=== PATIENT | female | born 1955 | race Caucasian/White ===

== ENCOUNTER 2017-05-10 02:38 | Emergency (ER) | payer MEDICARE ==
[2017-05-10 03:13] LABS: #Eosinphils 0.4 thou/uL (0.0-0.7); #Lymphocytes 3.3 thou/uL (1.20-3.40); #Monocytes 0.5 thou/uL (0.11-0.59); #Neutrophils 7.3 thou/uL (1.40-6.50); %Eosinophils 3.6 % (0.0-10.0); %Lymphocytes 28.2 % (21.0-51.0); %Monocytes 4.5 % (0.0-10.0); %Neutrophils 62.7 % (42.0-75.0); Mean Corpuscular HGB CONC 32.4 g/dL (32.0-36.0); Mean Corpuscular Volume 92.6 fL (81.0-99.0); Mean Platelet Volume 9.7 fL (7.4-10.4); Platelet Count 240 thou/uL (130-400); RBC Distribution Width 13.1 % (11.5-14.5); Red Blood Cell (RBC) Count 4.66 mill/uL (4.20-5.40); White Blood Cell (WBC) Count 11.7 thou/uL (4.8-10.8)
[2017-05-10 03:14] LABS: #Basophils 0.1 thou/uL (0.0-0.2)
[2017-05-10 03:17] LABS: Albumin 4.1 g/dL (3.5-5.0); Anion Gap 18 mmol/L (10-20); BUN (Urea Nitrogen) 21 mg/dL (9.8-20.1); Bilirubin, Total 0.3 mg/dL (0.2-1.2); Calc. Creatinine Clearance 0 mL/min (70-130); Calcium 10.4 mg/dL (7.8-10.44); Carbon Dioxide 23 mmol/L (22-29); Chloride 101 mmol/L (98-107); Estimated GFR-MDRD 37; Globulin 3.4 g/dL (2.4-3.5); Glucose 345 mg/dL (70-105); Potassium 4.2 mmol/L (3.5-5.1); Protein, Total 7.5 g/dL (6.0-8.3); Sodium 138 mmol/L (136-145)
[2017-05-10 03:18] LABS: ALT (SGPT) 13 U/L (8-55); AST (SGOT) 12 U/L (5-34); Alkaline Phosphatase 98 U/L (40-150)
[2017-05-10] MEDS ORDERED: Insulin Regular 300 UNITS/3 ML VIAL ONE (04:03)
--- NOTE | 2017-05-10 08:07 | CT ---
PRELIMINARY REPORT/[facility]/EMERGENCY AFTER HOURS PROCEDURE: EXAM: CT Lumbar Spine Without Intravenous Contrast EXAM DATE/TIME: Exam ordered 05/10/2017 3:16 AM CLINICAL HISTORY: 61 years old, female; Signs and symptoms; Numbness TECHNIQUE: Axial computed tomography images of the lumbar spine without intravenous contrast. Coronal and sagittal reformatted images were created and reviewed. COMPARISON: No relevant prior studies available. FINDINGS: Vertebrae: Unremarkable. No acute fracture. Discs/spinal canal/neural foramina: L4-L5 disc bulge. No significant central canal stenosis. Soft tissues: Unremarkable. Vasculature: 2.2 cm AAA. No rupture. Adrenals: Incidental right adrenal adenoma. Kidneys and ureters: Nonobstructive nephrolithiasis right kidney. Appendix: Normal appendix. IMPRESSION: No acute findings. Thank you for allowing us to participate in the care of your patient. Dictated and Authenticated by: Alverto Garcia MD 05/10/2017 4:00 AM Central Time ([place] & [place]) FINAL REPORT CT LUMBAR SPINE NONCONTRAST: DATE: 05/10/17. TIME: Performed on an emergency basis at 0317 hours. HISTORY: Low back pain. Numbness. FINDINGS: Findings agree with the preliminary report from [facility]. No acute osseous abnormalities ar e demonstrated. Degenerative changes of the lumbar spine are apparent. There is atherosclerosis and fusiform ectasia of the lower abdominal aorta. POS: [facility]
--- NOTE | 2017-05-10 08:08 | CT ---
PRELIMINARY REPORT/[facility]/EMERGENCY AFTER HOURS PROCEDURE: EXAM: CT Head Without Intravenous Contrast EXAM DATE/TIME: Exam ordered 05/10/2017 3:13 AM CLINICAL HISTORY: 61 years old, female; Signs and symptoms; Numbness / parasthesia; Left TECHNIQUE: Axial computed tomography images of the head/brain without intravenous contrast. COMPARISON: No relevant prior studies available. FINDINGS: Brain: Mild generalized volume loss of the brain. No hemorrhage. No significant white matter disease. Ventricles: Unremarkable. No ventriculomegaly. Bones/joints: Unremarkable. No acute fracture. Soft tissues: Unremarkable. Sinuses: Unremarkable as visualized. No acute sinusitis. Mastoid air cells: Unremarkable as visualized. No mastoid effusion. IMPRESSION: No acute brain findings. Thank you for allowing us to participate in the care of your patient. Dictated and Authenticated by: Alverto Garcia MD 05/10/2017 3:47 AM Central Time ([place] & [place]) FINAL REPORT CT HEAD NONCONTRAST: DATE: 05/10/17. TIME: Performed on an emergency basis at 0314 hours. HISTORY: Paresthesias. Numbness. FINDINGS: No comparison. Findings agree with the preliminary report from [facility]. No acute intracra nial abnormalities are demonstrated on noncontrast CT head. POS: [facility]
[2017-05-10] MEDS ORDERED: Sodium Chloride 0.9% 1,000 ML BAG ONE (08:26)
== END 2017-05-10 13:02 | disposition short-term general hospital (02) ==
LOC: MADERS 02:38
DX: I73.9 Peripheral vascular disease, unspecified (principal); E11.65 Type 2 diabetes mellitus with hyperglycemia; R27.0 Ataxia, unspecified; E78.5 Hyperlipidemia, unspecified; E66.9 Obesity, unspecified; J44.9 Chronic obstructive pulmonary disease, unspecified; Z79.84 Long term (current) use of oral hypoglycemic drugs; Z79.899 Other long term (current) drug therapy
CPT/HCPCS: 36415; 70450; 72131; 80053; 85025; 96360; J1815; J7050

== ENCOUNTER 2018-05-10 20:49 | Emergency (ER) | payer MEDICARE ==
[2018-05-10 21:27] LABS: Bilirubin Negative (Negative); Blood, Urine Small (Negative); Glucose, Urine (Dipstick) 500 mg/dL (Negative); Leukocyte Negative (Negative); Nitrite Negative (Negative); Protein, Urine (Dipstick) 100 mg/dL (Neg-Trace); Specific Gravity, Urine 1.015 (1.005-1.030); Urobilinogen 0.2 mg/dL (0.2-1.0); pH, Urine 5.5 (5.0-9.0)
[2018-05-10 21:29] LABS: Clarity Hazy (Clear)
[2018-05-10 21:30] LABS: WBC/HPF 0-3 HPF (0-3)
[2018-05-10 21:31] LABS: Bacteria/HPF None Seen HPF (None Seen)
[2018-05-10 21:39] LABS: Amphetamine Not Detected (NotDetected); Barbiturates Screen Not Detected (NotDetected); Benzodiazepine Screen Not Detected (NotDetected); Cocaine Metabolite Screen Not Detected (NotDetected); Medtox Control Line Valid? VALID (VALID); Methadone Not Detected (NotDetected); Methamphetamine Not Detected (NotDetected); Opiate Screen Not Detected (NotDetected); Oxycodone Screen Not Detected (NotDetected); Phencyclidine (PCP) Not Detected (NotDetected); THC/Cannabinoid Screen Not Detected (NotDetected); Tricyclic Screen Not Detected (NotDetected)
--- NOTE | 2018-05-10 21:48 | CT ---
CT BRAIN WITHOUT CONTRAST: INDICATIONS: History of fall while on blood thinners. COMPARISON: 05/10/2017 FINDINGS: There is mild generalized cerebral and cerebellar atrophy. No acute infarct, hemorrhage, or hydrocep halus is present. The septum pellucidum and third ventricle are midline. The skull and extracranial soft tissues are unremarkable appearing. IMPRESSION: No acute intracranial abnormality. Stable chronic findings as above. POS: [facility]
--- NOTE | 2018-05-10 21:49 | RAD ---
RIGHT WRIST THREE VIEWS: INDICATIONS: History of fall with right wrist pain. FINDINGS: There is an obliquely oriented, nondisplaced intraarticular radial styloid process fracture that ente rs the articular surface of the distal radius at the region of the scaphoid fossa. No additional fra cture is evident. There is soft tissue swelling surrounding the right wrist. IMPRESSION: Nondisplaced radial styloid process fracture. POS: [facility]
[2018-05-10] MEDS ORDERED: Sodium Chloride 0.9% 1,000 ML ONE (21:50)
[2018-05-10] MEDS ORDERED: Insulin Regular 300 UNITS/3 ML VIAL ONE (21:50)
--- NOTE | 2018-05-10 21:58 | RAD ---
LUMBAR SPINE THREE VIEWS: INDICATIONS: History of fall with back pain. COMPARISON: Lumbar spine CT evaluation, dated 05/10/2017. FINDINGS: There has been interval development of a mild to moderate wedge compression abnormality at L1. There is multilevel spondylosis of the thoracic spine. There are scattered vascular calcifications. IMPRESSION: Mild to moderate wedge compression abnormality of L1, new from the comparison examination, dated 2017. POS: [facility]
[2018-05-10 22:06] LABS: #Basophils 0.1 thou/uL (0.0-0.2); #Eosinphils 0.1 thou/uL (0.0-0.7); #Lymphocytes 2.1 thou/uL (1.20-3.40); #Monocytes 0.6 thou/uL (0.11-0.59); #Neutrophils 11.2 thou/uL (1.40-6.50); %Basophils 0.7 % (0.0-1.0); %Eosinophils 0.8 % (0.0-10.0); %Lymphocytes 14.9 % (21.0-51.0); %Monocytes 4.3 % (0.0-10.0); %Neutrophils 79.3 % (42.0-75.0); Hemoglobin 12.6 g/dL (12.0-16.0); Mean Corpuscular HGB CONC 32.8 g/dL (32.0-36.0); Mean Corpuscular Hemoglobin 29.2 pg (27.0-31.0); Mean Corpuscular Volume 88.8 fL (78.0-98.0); Mean Platelet Volume 8.5 fL (7.4-10.4); Platelet Count 192 thou/uL (130-400); RBC Distribution Width 13.2 % (11.5-14.5); Red Blood Cell (RBC) Count 4.32 mill/uL (4.20-5.40); White Blood Cell (WBC) Count 14.1 thou/uL (4.8-10.8)
[2018-05-10 22:24] LABS: ALT (SGPT) 14 U/L (8-55); AST (SGOT) 11 U/L (5-34); Acetaminophen Less than 6.0 mcg/mL (10.0-30.0); Albumin 3.8 g/dL (3.4-4.8); Alcohol Less than 10 mg/dL (Less than 10); Alkaline Phosphatase 142 U/L (40-150); Anion Gap 18 mmol/L (10-20); BUN (Urea Nitrogen) 15 mg/dL (9.8-20.1); Bilirubin, Total 0.7 mg/dL (0.2-1.2); Calc. Creatinine Clearance 0 mL/min (70-130); Calcium 9.3 mg/dL (7.8-10.44); Carbon Dioxide 24 mmol/L (23-31); Chloride 99 mmol/L (98-107); Estimated GFR-MDRD 45; Glucose 365 mg/dL (80-115); Protein, Total 6.8 g/dL (6.0-8.3); Salicylate Less than 8.0 mg/dL (15.0-30.0); Sodium 137 mmol/L (136-145)
== END 2018-05-10 22:50 | disposition home or self-care (01) ==
LOC: MADERS 20:49
DX: S52.514A Nondisplaced fracture of right radial styloid process, initial encounter for closed fracture (principal); S32.019A Unspecified fracture of first lumbar vertebra, initial encounter for closed fracture; I25.10 Atherosclerotic heart disease of native coronary artery without angina pectoris; E78.5 Hyperlipidemia, unspecified; E66.9 Obesity, unspecified; J44.9 Chronic obstructive pulmonary disease, unspecified; E11.9 Type 2 diabetes mellitus without complications; F41.9 Anxiety disorder, unspecified; F32.9 Major depressive disorder, single episode, unspecified; F17.210 Nicotine dependence, cigarettes, uncomplicated; Z79.84 Long term (current) use of oral hypoglycemic drugs; Z79.899 Other long term (current) drug therapy; Z79.82 Long term (current) use of aspirin; W19.XXXA Unspecified fall, initial encounter
CPT/HCPCS: 36415; 36416; 70450; 72100; 80053; 80306; 80307; 81003; 81015; 84443; 85025; 93005; J1815; J7050